=== PATIENT | female | born 1985 | race Caucasian/White ===

== ENCOUNTER 2025-02-12 08:39 | Day surgery (SDC) | payer OTHER, SELFPAY ==
[2025-02-05 10:23] VITALS: BMI 22.9
--- NOTE | 2025-02-12 | PATH_ITS ---
[facility] Accession Number: [id number] No. of containers..01 Tissue . 01 Material submitted: . back - BACK MASS . 01 Clinical history: . LIPOMA . 01 Diagnosis: SOFT TISSUE, BACK, EXCISION: Benign fibroadipose tissue, consistent with lipoma. MRV 02/17/20254 Local . 01 Electronically signed: . Surinder Grover MD, Dermatopathologist NPI- [id number] . 01 Gross description: . Received in formalin with two identifiers and lipoma, are multiple yellow lobulated soft tissue fragments aggregating to 7.5 x 6.9 x 2.0 cm. Sectioning reveals a yellow, lobulated, unremarkable cut surface. [employer] sections are submitted in cassettes A1-A2. ([id number]) /NIRANJAN 02/16/20252058 Local . 01 Pathologist provided ICD-10: D17.1 . 01 CPT . 611351 Specimen Comment: A courtesy copy of this report has been sent to [facility] Performed at: [address] [address], [place], [place] [id number] MD Tip Jerome MD Phone: [phone]
--- NOTE | 2025-02-12 07:36 | PM.PREOP ---
Pre-operative Note Interval Note History & Physical reviewed/Exam performed by Physician: Yes Changes to H&P: No ASA Class (for procedural sedation): I
[2025-02-12] MEDS: LACTATED RINGERS 1,000 ML 42 ML IV (09:12)
[2025-02-12] MEDS: ACETAMINOPHEN 325 MG TABLET 975 MG PO (09:14)
[2025-02-12 09:16] VITALS: BP 114/80; PULSE 77; RESP 16; TEMP 36.4; O2SAT 98; BMI 22.9
--- NOTE | 2025-02-12 11:29 | SUR.OPER ---
Lateral right side down, head on pillow, bottom leg bent with gel pad under knee and ankle. Upper arm supported by pillows and secured over bottom arm to padded arm board. Safety belt at hip, tape over blanket lower legs.
[2025-02-12 11:56] VITALS: BP 108/67; PULSE 96; RESP 20; TEMP 36.6; O2SAT 98
[2025-02-12 12:00] VITALS: BP 103/68; PULSE 85; RESP 13; O2SAT 100
--- NOTE | 2025-02-12 12:00 | PM.OP.1 ---
Operative Date/Time/Diagnoses Date of procedure: 02/12/25 Time of procedure: 12:00 Pre-op diagnosis: Back mass Post-op diagnosis: same (Clinical lipoma) Procedure & Clinicians Procedure: Excision 6cm back mass Same procedure(s) as scheduled: Yes Indications: 39yo F with painful, large back mass. Surgeon: Shaq Eli Click Yes if Unassisted: Yes Anesthesia Type: MAC +/- Operative Notes Findings: Multi-lobulated clinical lipoma Closure Type: primary Specimen(s): other (mass) Applied: none Estimated Blood Loss (mL): 10 Blood products transfused: none Procedure in detail: After informed consent and satisfactory sedation, the back was prepped and draped in the usual sterile manner. Surgical time-out was performed with all team members in agreement. The patient received appropriate VTE prophylaxis. The proposed skin incision was injected with 0.5% Marcaine with epinephrine, a total of 30 cc was used. The skin incision was made with the 15 blade and continued through the skin and subcutaneous tissues. The patient was noted to have a multilobulated lipoma with the cluster of grapes pattern. We carefully identified each pocket that could be identified and this was removed. The mass measured 6 cm in dimension. This was sent for permanent section. When I was confident I had retrieved all potential pockets, hemostasis was achieved with cautery. There was a significant space and I closed this with 3-0 Vicryl interrupted. The lipoma was in the subcutaneous position above the fascia. The skin incision was closed using 4-0 Monocryl in a subcuticular manner. Dermabond glue was applied as a final dressing. The estimated blood loss was minimal. The instrument sponge and needle counts were all correct x2. The patient tolerated the procedure well and was transported to the recovery area in stable condition. Complications: none Post-operative Condition: stable Disposition: PACU Plan for aftercare: PACU then home
== END 2025-02-12 12:34 | disposition home or self-care (01) ==
PROVIDERS: PCP Physician Assistant Medical; Referring Provider Physician Assistant Medical; Visit Provider Surgery
PROC: (CPT 21931; principal; 2025-02-12 10:45)
DX: D17.1 Benign lipomatous neoplasm of skin and subcutaneous tissue of trunk (principal)
CPT/HCPCS: 21931; 81025; J1100; J1885; J2250; J2405; J2704; J3010